=== PATIENT | female | born 1980 | race American Indian/Alaskan Native ===

== ENCOUNTER 2016-10-29 10:10 | Outpatient (CLI) | payer OTHER ==
--- NOTE | 2016-10-29 13:26 | Ultrasound Report ---
TRANSABDOMINAL AND TRANSVAGINAL PELVIC ULTRASOUND: 10/29/16 10:10:00 CLINICAL: Irregular menses. FINDINGS: Transabdominal and transvaginal pelvic ultrasound demonstrated a normal uterus measuring 7.7 x 3.5 x 5.4 cm. Normal uterine contour and echogenicity. No uterine fibroid or mass. An 8mm nabothian cysts in the cervix. The endometrium is normal and measures 8.0 mm AP thickness. Normal ovaries with small follicles in each ovary. The right ovary measures 3.1 x 2.3 x 2.6cm. The left ovary measures 3.3 x 2.5 x 3.0cm. No adnexal mass. No free fluid. Normal urinary bladder. IMPRESSION: Normal uterus and ovaries.
== END 2016-10-29 10:11 | disposition home or self-care (01) ==
LOC: SPVWC 10:10
PROVIDERS: ATTEND Family Medicine
DX: N92.6 Irregular menstruation, unspecified (principal)
CPT/HCPCS: 76830; 76856